=== PATIENT | female | born 1960 | race Caucasian/White ===

== ENCOUNTER → 2023-06-21 07:50 | Outpatient (REF) | payer BC, SELFPAY | LOC: WDC 07:50 | PROVIDERS: ATTENDING PHYSICIAN Nurse Practitioner Adult Health; FAMILY PHYSICIAN Nurse Practitioner Adult Health | DX: R92.2 Inconclusive mammogram (principal); Z80.3 Family history of malignant neoplasm of breast | CPT/HCPCS: 76641 ==

== ENCOUNTER → 2023-06-22 07:51 | Outpatient (REF) | payer BC, SELFPAY | LOC: RAD 07:51 | PROVIDERS: ATTENDING PHYSICIAN Internal Medicine Rheumatology; FAMILY PHYSICIAN Nurse Practitioner Adult Health | DX: M81.0 Age-related osteoporosis without current pathological fracture (principal) | CPT/HCPCS: 72072; 72110; 73523; 77080 ==

== ENCOUNTER → 2023-08-06 07:31 | Outpatient (REF) | payer BC, SELFPAY ==
[2023-08-06 08:27] LABS: % Basophils 1.2 % (0-2); % Eosinophils 4.4 % (0-6); % Immature Granulocytes 0.3 % (0-0.5); % Lymphocytes 22.5 % (20.5-51.1); % Monocytes 9.1 % (1.7-9.3); % Neutrophils 62.5 % (42.2-75.2); Absolute Eosinophils 0.2 10^3/uL (0-0.7); Absolute Lymphocytes 0.8 10^3/uL (1.2-3.4); Absolute Monocytes 0.3 10^3/uL (0.1-0.6); Absolute Neutrophils 2.1 10^3/uL (1.4-6.5); Hematocrit 40.3 % (37.0-47.0); Hemoglobin 13.2 g/dL (12.0-16.0); Mean Corp Hgb Conc. 32.8 g/dL (33.0-37.0); Mean Corpuscular Hgb 29.2 pg (27.0-31.0); Mean Corpuscular Volume 89.2 fL (81.0-99.0); Mean Platelet Volume 10.5 fL (7.4-10.4); Nucleated Red Blood Cells % 0 %; Platelet Count 201 10^3/uL (130-400); Red Blood Cell Count 4.52 10^6/uL (4.20-5.40); Red Cell Dist. Width 12.5 % (11.5-14.5); White Blood Cell Count 3.4 10^3/uL (4.8-10.8)
[2023-08-06 09:18] LABS: ALT (SGPT) 28 U/L (0-35); AST (SGOT) 32 U/L (14-36); Albumin 4.1 g/dl (3.5-5.0); Alkaline Phosphatase 52 U/L (38-126); Blood Urea Nitrogen 18 mg/dl (7-17); Calcium 9.2 mg/dl (8.4-10.2); Carbon Dioxide 27 mmol/L (22-30); Chloride 103 mmol/L (98-107); Glucose 91 mg/dl (70-99); HDL Cholesterol 84 mg/dl; LDL Cholesterol, Calculated 110 mg/dl; Potassium 4.5 mmol/L (3.5-5.1); Sodium 136 mmol/L (135-145); Total Bilirubin 0.5 mg/dl (0.2-1.3); Total Cholesterol 206 mg/dl (50-199); Total Protein 6.5 g/dl (6.3-8.2); Triglyceride 62 mg/dl (10-149); Very Low Density Lipoprotein 12 mg/dl (0-30); eGFR > 60.00
[2023-08-06 09:20] LABS: Vitamin D, 25-OH*** 45.2 ng/mL (30-80)
[2023-08-06 09:34] LABS: TSH Reflex To Free T4 1.23 uIU/ml (0.47-4.68)
[2023-08-06 13:02] LABS: Intact PTH 53.4 pg/ml (13.6-85.8)
== END ==
LOC: REG 07:31
PROVIDERS: ATTENDING PHYSICIAN Internal Medicine Rheumatology; FAMILY PHYSICIAN Nurse Practitioner Adult Health
DX: E55.9 Vitamin D deficiency, unspecified (principal); M81.0 Age-related osteoporosis without current pathological fracture; I10 Essential (primary) hypertension; Z00.00 Encounter for general adult medical examination without abnormal findings; Z79.899 Other long term (current) drug therapy; Z13.29 Encounter for screening for other suspected endocrine disorder
CPT/HCPCS: 36415; 80053; 80061; 82306; 82330; 83970; 84443; 85025

== ENCOUNTER → 2023-09-23 07:23 | Outpatient (REF) | payer BC, SELFPAY | LOC: RAD 07:23 | PROVIDERS: ATTENDING PHYSICIAN Nurse Practitioner Adult Health | DX: R10.10 Upper abdominal pain, unspecified (principal) | CPT/HCPCS: 76700 ==

== ENCOUNTER → 2023-10-06 12:26 | Outpatient (REF) | payer BC, SELFPAY | LOC: MRI 3T 12:26 | PROVIDERS: ATTENDING PHYSICIAN Orthopaedic Surgery; FAMILY PHYSICIAN Nurse Practitioner Adult Health | DX: M25.552 Pain in left hip (principal) | CPT/HCPCS: 73721 ==

== ENCOUNTER → 2023-11-30 07:29 | Outpatient (REF) | payer BC, SELFPAY | LOC: WDC 07:29 | PROVIDERS: ATTENDING PHYSICIAN Nurse Practitioner Adult Health; FAMILY PHYSICIAN Nurse Practitioner Adult Health | DX: Z12.31 Encounter for screening mammogram for malignant neoplasm of breast (principal) | CPT/HCPCS: 77063; 77067 ==

== ENCOUNTER 2023-12-30 05:44 | Day surgery (SDC) | payer BC, SELFPAY ==
[2023-12-07 13:34] VITALS: BMI 25.3
[2023-12-07 15:11] LABS: Hematocrit 37.6 % (37.0-47.0); Hemoglobin 12.8 g/dL (12.0-16.0); Mean Corpuscular Volume 85.1 fL (81.0-99.0); Mean Platelet Volume 10.5 fL (7.4-10.4); Platelet Count 243 10^3/uL (130-400); Red Blood Cell Count 4.42 10^6/uL (4.20-5.40); White Blood Cell Count 4.2 10^3/uL (4.8-10.8)
[2023-12-07 15:26] LABS: ALT (SGPT) 27 U/L (0-35); AST (SGOT) 32 U/L (14-36); Albumin 4.3 g/dl (3.5-5.0); Alkaline Phosphatase 69 U/L (38-126); Blood Urea Nitrogen 16 mg/dl (7-17); Calcium 8.9 mg/dl (8.4-10.2); Carbon Dioxide 24 mmol/L (22-30); Chloride 102 mmol/L (98-107); Estimated Creatinine Clearance 65 ml/min; Glucose 89 mg/dl (70-99); Potassium 4.5 mmol/L (3.5-5.1); Sodium 137 mmol/L (135-145); Total Bilirubin 0.3 mg/dl (0.2-1.3); Total Protein 6.7 g/dl (6.3-8.2); eGFR > 60.00
[2023-12-08 09:25] LABS: Glycohemoglobin (HgbA1c) 5.8 % (4.0-5.6)
[2023-12-24 14:47] VITALS: BMI 25.3
[2023-12-30] VITALS (18 sets, daily range): BP systolic 89–151; BP diastolic 42–87; PULSE 64; O2SAT 98
[2023-12-30] MEDS: TYLENOL 650 MG PO ×4 (08:15→23:22)
[2023-12-30] MEDS: CELEBREX 200 MG PO (08:16)
--- NOTE | 2023-12-30 10:08 | VNURNOTE ---
Chart reviewed. Per Ortho pre-op note, pt to start outpt PT Mon after surgery. Surgery is on 12/29, per OR list, pt to stay overnight (PSR).
Plan: outpt PT per Ortho plan
[2023-12-30] MEDS: ROXICODONE 5 MG PO ×2 (12:54→20:07)
[2023-12-30] MEDS: DILAUDID 0.25 MG IV ×2 (14:42→14:57)
--- NOTE | 2023-12-30 14:54 | W.PN.ORTHO ---
Today's Communication / Plan
-
D/c when clinically stable.
Assessment
.
Distal Motor Intact: Yes
Dressing:
Scant incisional bleeding.
Assessment:
L knee OA s/p L TKA w/ Dr Head 12/30/23
DVT prophylaxis - ASA, b/l venous foot pumps
HTN - + parameters - monitor BP
Heart murmur; echo 2020 w/o significant valvular disease
Tubular adenomatous polyp colon s/p excision
Diverticulosis
Cholelithiasis, asymptomatic
IBS
Multilevel DDD
Chronic wedge compression T9 fracture
Sciatica
Anxiety
Osteopenia
Chronic benign neutropenia
Insomnia
Prediabetes, A1c 5.8
Plan
.
Surgery / Date: L TKA w/ Dr Head 12/30/23
DVT Prophylaxis: Aspirin
Activity:
Out of bed.
PT/OT
Discharge Plan: Home w/ Outpatient PT
Subjective
.
.:
Patient resting comfortably in PACU.
Left knee pain minimal and currently well tolerated.
Denies any new significant complaints.
Vital Signs and Labs
.
Vital Signs and Labs:
Lab Results
12/07/23 13:27
12/07/23 13:27
Physical Exam
-
HEENT: No pallor, cyanosis, or jaundice. Throat clear.
NECK: Supple. No JVD.
RESPIRATORY: Lungs clear to auscultation.
CVS: S1, S2 normal. RRR.�+ Murmur.
ABDOMEN: Soft, non-tender. No distension.
EXTREMITIES: Strength equal, no calf pain with palpation/dorsiflexion. Calves soft.
OPERATIONS SYSTEMS SPECIALIST: AOx3. No focal deficits. director of managed services grossly intact
[2023-12-30] MEDS: NORMOSOL-R/PLASMALYTE-A 1000 IV (15:51)
[2023-12-30] MEDS: ROXICODONE 10 MG PO ×2 (15:51→23:26)
[2023-12-30] MEDS: TYLENOL PO (15:51)
--- NOTE | 2023-12-30 15:55 | PTCARENOTE ---
Patient received from PACU in bed; Left knee primaseal with small amount of drainage; Patient states pain is a five out of ten at this time; Patient denies N/V at this time; Call skinner within reach; Patient oriented to room and unit; Bed in lowest
position, wheels locked; Assessment ongoing
[2023-12-30] MEDS: ZOFRAN 4 MG IV ×2 (17:14→23:23)
[2023-12-30] MEDS: ASPIRIN 325 MG PO (17:15)
[2023-12-30] MEDS: DILAUDID 0.5 MG IV (17:16)
[2023-12-30] MEDS: ANCEF 5 IV (17:16)
[2023-12-30] MEDS: SENOKOT 17.2 MG PO (20:06)
[2023-12-30] MEDS: DECADRON 4 MG PO (20:06)
[2023-12-30] MEDS: COMPAZINE 5 MG PO (20:06)
[2023-12-30] MEDS: COLACE 100 MG PO (20:06)
[2023-12-30] MEDS: BACTROBAN 2% OINTMENT 1 APPLIC NASAL (20:46)
[2023-12-30] MEDS: ZYRTEC 10 MG PO (21:00)
[2023-12-30] MEDS: PEPCID 20 MG PO (21:00)
[2023-12-31] MEDS: ANCEF 5 IV (01:11)
[2023-12-31 03:09] VITALS: BP 119/62
[2023-12-31] MEDS: TYLENOL 650 MG PO ×3 (03:22→12:38)
[2023-12-31] MEDS: ROXICODONE 5 MG PO ×3 (03:26→12:38)
[2023-12-31 07:22] VITALS: BP 116/64
[2023-12-31] MEDS: BACTROBAN 2% OINTMENT 1 APPLIC NASAL (08:31)
[2023-12-31] MEDS: ASPIRIN 325 MG PO (08:31)
[2023-12-31] MEDS: DECADRON 4 MG PO (08:32)
[2023-12-31] MEDS: CELEBREX 200 MG PO (08:32)
[2023-12-31] MEDS: COLACE 100 MG PO (08:32)
[2023-12-31] MEDS: SENOKOT 17.2 MG PO (08:32)
--- NOTE | 2023-12-31 09:30 | W.PN.ORTHO ---
Today's Communication / Plan
-
Await PT and OT recs.
D/c later today if remaining clinically stable.
Assessment
.
Distal Motor Intact: Yes
Dressing:
Scant old incisional bleeding - unchanged since yesterday.
Assessment:
L knee OA s/p L TKA w/ Dr Head 12/30/23
DVT prophylaxis - ASA, b/l venous foot pumps
Post-op nausea - likely 2* IV Dilaudid for severe breakthrough pain - improved w/ anti-emetics prn
- Does have [facility] Solutionfran script for d/c
HTN - + parameters - BPs overall stable
Heart murmur; echo 2020 w/o significant valvular disease
Tubular adenomatous polyp colon s/p excision
Diverticulosis
Cholelithiasis, asymptomatic
IBS
Multilevel DDD
Chronic wedge compression T9 fracture
Sciatica
Anxiety
Osteopenia
Chronic benign neutropenia
Insomnia
Prediabetes, A1c 5.8
Plan
.
Surgery / Date: L TKA w/ Dr Head 12/30/23
DVT Prophylaxis: Aspirin
Activity:
Out of bed.
PT/OT
Discharge Plan: Home w/ Outpatient PT
Subjective
.
.:
Patient resting comfortably in her bed this AM.
L knee pain better tolerated in comparison to yesterday evening.
Nausea yesterday evening improved w/ anti-emetics prn.
Eager for potential d/c today.
Vital Signs and Labs
.
Vital Signs and Labs:
Lab Results
12/07/23 13:27
12/07/23 13:27
Temp Pulse Resp BP Pulse Ox
98.5 F 71 16 116/64 97
12/31/23 07:22 12/31/23 08:32 12/31/23 07:22 12/31/23 08:32 12/31/23 07:22
Non-invasive Hgb result: 11.2
Physical Exam
-
HEENT: No pallor, cyanosis, or jaundice. Throat clear.
NECK: Supple. No JVD.
RESPIRATORY: Lungs clear to auscultation.
CVS: S1, S2 normal. RRR.�+ Murmur.
ABDOMEN: Soft, non-tender. No distension.
EXTREMITIES: Expected post-surgical L knee edema. Strength equal, no calf pain with palpation/dorsiflexion. Calves soft.
CERTIFIED LOW VISION THERAPIST: AOx3. No focal deficits. plan consultant grossly intact
--- NOTE | 2023-12-31 09:45 | W.DS.TRANS ---
DC Summary - Documentation Liaison
-
Discharge Instructions:
Sleep Apnea Risk Low
Discharge Diagnosis/Procedures L knee OA s/p L TKA w/ Dr Head 12/30/23
Diet Regular
Activity As tolerated,With Walker
Driving Restrictions Not until seen by your Dr
Bathing Restrictions OK to Shower
Other Services PT
Wound Care Dressing to be removed 1 week post-surgery
Instructions:
Stand-Alone Forms: Total Hip/Knee Replacement D/C
Changes to Home Medications: Yes
Discharge Medications:
DC Medications w/original date entered in [facility]
lands Leg Cramps 2 cap PO HS 12/24/23
cetirizine 10 mg tablet (Zyrtec) 10 mg PO HS 12/24/23
denosumab 60 mg/mL subcutaneous syringe (Prolia) 60 mg SC [id number] 12/24/23
lorazepam 1 mg tablet 0.5 mg PO HS PRN sleep 12/24/23
acetaminophen 500 mg tablet (Tylenol Extra Strength) 1,000 mg (2 x 500 mg) PO Q6H #60 tabs 12/30/23
aspirin 325 mg tablet 325 mg PO DAILY #30 tabs 12/30/23
celecoxib 100 mg capsule (Celebrex) 100 mg PO BID #30 caps 12/30/23
dexamethasone 4 mg tablet 4 mg PO Q12H Anti-inflammatory #7 tabs 12/30/23
docusate sodium 100 mg capsule 100 mg PO BID #30 caps 12/30/23
losartan 50 mg tablet 50 mg PO DAILY #0 tabs 12/30/23
ondansetron HCl 4 mg tablet 4 mg PO Q6H PRN nausea and vomiting #30 tabs 12/30/23
oxycodone 5 mg tablet 5 - 10 mg (1 - 2 x 5 mg) PO Q6H PRN moderate-severe pain #30 tabs 12/30/23
sennosides 8.6 mg tablet (Senna Laxative) 17.2 mg (2 x 8.6 mg) PO BID #30 tabs 12/30/23
Home Medication Changes
acetaminophen 500 mg tablet (Tylenol Extra Strength) 1,000 mg (2 x 500 mg) PO Q6H #60 tabs 12/30/23
aspirin 325 mg tablet 325 mg PO DAILY #30 tabs 12/30/23
celecoxib 100 mg capsule (Celebrex) 100 mg PO BID #30 caps 12/30/23
dexamethasone 4 mg tablet 4 mg PO Q12H Anti-inflammatory #7 tabs 12/30/23
docusate sodium 100 mg capsule 100 mg PO BID #30 caps 12/30/23
ondansetron HCl 4 mg tablet 4 mg PO Q6H PRN nausea and vomiting #30 tabs 12/30/23
oxycodone 5 mg tablet 5 - 10 mg (1 - 2 x 5 mg) PO Q6H PRN moderate-severe pain #30 tabs 12/30/23
sennosides 8.6 mg tablet (Senna Laxative) 17.2 mg (2 x 8.6 mg) PO BID #30 tabs 12/30/23
Pending Results: No
[2023-12-31 10:17] VITALS: BP 143/62; BP_SYST 76; PULSE 75; O2SAT 97
[2023-12-31 10:34] VITALS: BP 143/62; PULSE 75; O2SAT 97
--- NOTE | 2023-12-31 11:01 | CM ---
Met with pt at bedside
Pt lives with her mother and sister in a 2 story home; 3 steps to enter, 12 steps to 2nd fl
Independent at baseline, works FT, drives
DME - rolling walker, single point cane, raised toilet seat, shower bar, shower chair
SNF/HH - no hx
Has ride home
PCP - James Jesus
Pharm - [facility]
Has outpatient PT scheduled for Wednesday at [facility]. Has Rx
Plan - home with Outpatient PT
[2023-12-31 11:16] VITALS: BP 135/74
== END 2023-12-31 14:02 | disposition home or self-care (01) ==
LOC: SDS 05:44
PROVIDERS: ATTENDING PHYSICIAN Orthopaedic Surgery; FAMILY PHYSICIAN Nurse Practitioner Adult Health
DX: M17.12 Unilateral primary osteoarthritis, left knee (principal); I10 Essential (primary) hypertension; R11.0 Nausea; T40.2X5A Adverse effect of other opioids, initial encounter
CPT/HCPCS: 27447; 36415; 73560; 80053; 83036; 85027; 87070; 93005; 97110; 97116; 97162; 97166; 97530; 97535; C1713; C1776

== ENCOUNTER 2024-01-05 06:27 | Outpatient (RCR) | payer BC, SELFPAY | END 2024-01-05 23:59 | disposition home or self-care (01) | LOC: RPT 06:27 | PROVIDERS: ATTENDING PHYSICIAN Orthopaedic Surgery; FAMILY PHYSICIAN Nurse Practitioner Adult Health | DX: Z47.1 Aftercare following joint replacement surgery (principal); Z73.6 Limitation of activities due to disability; M25.562 Pain in left knee; Z96.652 Presence of left artificial knee joint | CPT/HCPCS: 97010; 97110; 97161 ==

== ENCOUNTER 2024-02-04 07:50 | Outpatient (RCR) | payer BC, SELFPAY | END 2024-02-04 23:59 | disposition home or self-care (01) | LOC: RPT 07:50 | PROVIDERS: ATTENDING PHYSICIAN Orthopaedic Surgery; FAMILY PHYSICIAN Nurse Practitioner Adult Health | DX: Z47.1 Aftercare following joint replacement surgery (principal); Z96.652 Presence of left artificial knee joint; M25.562 Pain in left knee; M62.81 Muscle weakness (generalized); Z73.6 Limitation of activities due to disability | CPT/HCPCS: 97010; 97110; 97112; 97116; 97140; 97530 ==

== ENCOUNTER 2024-03-06 06:56 | Outpatient (RCR) | payer BC, SELFPAY | END 2024-03-06 23:59 | disposition home or self-care (01) | LOC: RPT 06:56 | PROVIDERS: ATTENDING PHYSICIAN Orthopaedic Surgery; FAMILY PHYSICIAN Nurse Practitioner Adult Health | DX: Z47.1 Aftercare following joint replacement surgery (principal); M25.562 Pain in left knee; Z96.652 Presence of left artificial knee joint; M62.81 Muscle weakness (generalized); Z73.6 Limitation of activities due to disability | CPT/HCPCS: 97010; 97110; 97112; 97140; 97530 ==

== ENCOUNTER 2024-04-05 16:56 | Outpatient (RCR) | payer BC, SELFPAY | END 2024-04-06 07:36 | disposition home or self-care (01) | LOC: RPT 16:56 | PROVIDERS: ATTENDING PHYSICIAN Orthopaedic Surgery; FAMILY PHYSICIAN Nurse Practitioner Adult Health | DX: Z47.1 Aftercare following joint replacement surgery (principal); M25.562 Pain in left knee; M62.81 Muscle weakness (generalized); Z73.6 Limitation of activities due to disability; Z96.652 Presence of left artificial knee joint | CPT/HCPCS: 97110; 97112; 97530 ==

== ENCOUNTER → 2024-04-21 07:34 | Outpatient (REF) | payer BC, SELFPAY ==
[2024-04-21 08:03] LABS: Ionized Calcium 1.15 mMOL/L (1.15-1.33)
[2024-04-21 09:08] LABS: ALT (SGPT) 21 U/L (0-35); AST (SGOT) 28 U/L (14-36); Albumin 4.1 g/dl (3.5-5.0); Alkaline Phosphatase 60 U/L (38-126); Blood Urea Nitrogen 17 mg/dl (7-17); Calcium 8.9 mg/dl (8.4-10.2); Carbon Dioxide 26 mmol/L (22-30); Chloride 103 mmol/L (98-107); Glucose 98 mg/dl (70-99); Potassium 4.5 mmol/L (3.5-5.1); Sodium 137 mmol/L (135-145); Total Bilirubin 0.5 mg/dl (0.2-1.3); Total Protein 6.3 g/dl (6.3-8.2); eGFR > 60.00
[2024-04-21 09:17] LABS: Vitamin D, 25-OH*** 51.9 ng/mL (30-80)
[2024-04-22 09:43] LABS: Intact PTH 40.8 pg/ml (13.6-85.8)
== END ==
LOC: REG 07:34
PROVIDERS: ATTENDING PHYSICIAN Internal Medicine Rheumatology; FAMILY PHYSICIAN Nurse Practitioner Adult Health
DX: E07.9 Disorder of thyroid, unspecified (principal); E55.9 Vitamin D deficiency, unspecified; M25.551 Pain in right hip; M25.552 Pain in left hip; M54.50 Low back pain, unspecified; M54.6 Pain in thoracic spine; M81.0 Age-related osteoporosis without current pathological fracture
CPT/HCPCS: 36415; 80053; 82306; 82330; 83970

== ENCOUNTER 2024-06-04 14:40 | Emergency (ER) | payer BC, SELFPAY ==
[2024-06-04 14:44] VITALS: BP 152/85
[2024-06-04 16:27] VITALS: BMI 27.6
--- NOTE | 2024-06-04 16:33 | ED.MUSCINJ ---
HPI-Injury
General
Chief Complaint: Musculo-Skeletal Complaint
Source: patient
Time Seen by Provider: 06/04/24 16:26
History of Present Illness-Injury
Is this injury a work related problem?: No
Is pt an associate of [facility]?: No
Initial Injury comments:
64-year-old female not diabetic, previously saw Dr. Karl Head for knee replacement presents with a few days of left wrist pain, works in [employer] does do a lot of heavy lifting was also gardening recently no known foreign bodies, no fevers
no history of gout
Past History
Past History
ED Past Medical History: HTN, Valvular disease (murmer) and Other (gallstones)
ED Past Surgical History: Orthopedic and Other (septoplasty, EGD/Colonoscopy)
Social History
Tobacco: Non-smoker
Alcohol: Occasional
Drug: None
Personal:
Living: with family
Employment: Employed
Review of Systems
Review of Systems
All Other Systems: Not applicable
Constitutional: Denies fever or fatigue
Musculoskeletal: Reports joint pain
Phy Exam
Physical Exam
Physical Exam:
Physical Exam
General: no apparent distress, not acutely ill
Neck: No jaundice
Heart: s1/s2 regular rate and rhythm, no murmur. equal radial pulses.
Lungs: no acute respiratory distress. clear bilaterally
Neuro: alert and oriented. no focal neurological deficits
Skin: no rash
Psychiatric: well kept. interactive and cooperative
Extremities: Swelling ulnar surface left wrist overlying the carpal bones minimal warmth no crepitance full range of motion
Injury Course
Orders/Labs/Results
Orders:
Orders
06/04/24 14:47
CR Wrist - Left Min 3 Views Urgent
Comment:
Reason For Exam: Swollen, tender
03/30/25 16:32
Splints/Slings/Crut- Treatment ONCE
Cephalexin Monohydrate [Keflex] 500 mg PO NOW STA
Ibuprofen [Motrin] 600 mg PO NOW STA
MDM/Problems Addressed
Differential Diagnosis Includes:
Overuse cellulitis tendinitis perhaps foreign body
MDM/Problems Addressed:
Wrist pain
*Critical Care Note
Total Time (30-74mins, 75-104mins- exclusive of procedures): Not Applicable
Update Note
Update Note:
Clinically suspect overuse x-ray noted report noted will start on antibiotics NSAID splint follow-up orthopedic hand
ED Attending Note
-
Portions of this chart may have been created with voice recognition software.� Occasional wrong word or��sound alike� substitutions may have occurred due to the inherent limitations of voice recognition software.
Discharge Plan
Departure
Date of Disposition: 06/04/24
Time of Disposition: 16:36
Patient with high blood pressure during this ER visit?: No
Condition: Good
Prescriptions:
New
cephalexin 500 mg capsule
500 mg PO Q8H 7 Days Qty: 21 0RF
ibuprofen 400 mg tablet
400 mg PO Q8H PRN (Reason: Pain) Qty: 20 0RF
No Action
cetirizine [Zyrtec] 10 mg Tablet
10 mg PO HS
lorazepam 1 mg Tablet
0.5 mg PO HS PRN (Reason: sleep)
Prolia 60 mg/mL Syringe
60 mg SC [id number]
Patient Comments:
last shot October
[place] Leg Cramps
2 cap PO HS
aspirin 325 mg Tablet
325 mg PO DAILY Qty: 30 0RF
Rx Instructions:
Take daily x4 weeks for blood clot prevention.
dexamethasone 4 mg Tablet
4 mg PO Q12H Qty: 7 0RF
Rx Instructions:
Restart night of discharge and continue twice a day until finished.
Take with food.
docusate sodium 100 mg Capsule
100 mg PO BID Qty: 30 0RF
oxycodone 5 mg Tablet
5 - 10 mg PO Q6H PRN (Reason: moderate-severe pain) Qty: 30 0RF
Rx Instructions:
1 tab for moderate pain, 2 if severe.
Dx total joint
sennosides [Senna Laxative] 8.6 mg Tablet
17.2 mg PO BID Qty: 30 0RF
acetaminophen [Tylenol Extra Strength] 500 mg tablet
1,000 mg PO Q6H Qty: 60 0RF
Rx Instructions:
DO NOT exceed >4000 mg daily.
ondansetron HCl 4 mg tablet
4 mg PO Q6H PRN (Reason: nausea and vomiting) Qty: 30 0RF
Rx Instructions:
Prescribed pre-op by surgeon's office.
celecoxib [Celebrex] 100 mg capsule
100 mg PO BID Qty: 30 0RF
Rx Instructions:
Restart night of discharge. Take with food.
DO NOT take within 2 hours of Aspirin.
losartan 50 mg Tablet
50 mg PO DAILY Qty: 0 0RF
Rx Instructions:
HOLD if systolic blood pressure <130 while on Oxycodone
Referrals:
Colten Reeves MD [Active] - Next open appointment
Activity Restrictions/Additional Instructions:
Rest, use splint, take antibiotics and ibuprofen as prescribed
Call [facility] orthopedics, to arrange follow-up with one of their hand doctors
Return to the ER for worsening symptoms
Interventions
Interventions:
*Risk Screen - Suicide Last Done: 06/04/24 16:27
*General Assessment Last Done: 06/04/24 16:27
*Neglect/Abuse Screening Last Done: 06/04/24 16:27
*ED- Fall Risk Assessment Last Done: 06/04/24 16:27
*ED COVID-19 Vaccine History Last Done: 06/04/24 16:27
ED-Musculoskeletal Assessment Last Done: 06/04/24 16:27
Discharge Date and Time
Print Language: MAURITIAN
[2024-06-04] MEDS: MOTRIN 600 MG PO (16:40)
[2024-06-04] MEDS: KEFLEX 500 MG PO (16:40)
== END 2024-06-04 16:52 | disposition home or self-care (01) ==
LOC: EMR 14:40
PROVIDERS: EMERGENCY PHYSICIAN Emergency Medicine; FAMILY PHYSICIAN Nurse Practitioner Adult Health
DX: M25.532 Pain in left wrist (principal); I10 Essential (primary) hypertension
CPT/HCPCS: 99283; 73110

== ENCOUNTER → 2024-06-21 07:55 | Outpatient (REF) | payer BC, SELFPAY | LOC: WDC 07:55 | PROVIDERS: ATTENDING PHYSICIAN Nurse Practitioner Adult Health; FAMILY PHYSICIAN Nurse Practitioner Adult Health | DX: R92.2 Inconclusive mammogram (principal) | CPT/HCPCS: 76641 ==

== ENCOUNTER → 2024-08-25 07:19 | Outpatient (REF) | payer BC, SELFPAY ==
[2024-08-25 08:01] LABS: Ionized Calcium 1.12 mMOL/L (1.15-1.33)
[2024-08-25 08:03] LABS: % Eosinophils 3.1 % (0-6); % Lymphocytes 16.3 % (20.5-51.1); % Monocytes 11.1 % (1.7-9.3); % Neutrophils 68.5 % (42.2-75.2); Absolute Eosinophils 0.1 10^3/uL (0-0.7); Absolute Lymphocytes 0.5 10^3/uL (1.2-3.4); Absolute Monocytes 0.3 10^3/uL (0.1-0.6); Hematocrit 39.6 % (37.0-47.0); Hemoglobin 13.2 g/dL (12.0-16.0); Mean Corp Hgb Conc. 33.3 g/dL (33.0-37.0); Mean Corpuscular Hgb 28.6 pg (27.0-31.0); Mean Corpuscular Volume 85.7 fL (81.0-99.0); Mean Platelet Volume 10.7 fL (7.4-10.4); Nucleated Red Blood Cells % 0 %; Platelet Count 186 10^3/uL (130-400); Red Blood Cell Count 4.62 10^6/uL (4.20-5.40); Red Cell Dist. Width 11.9 % (11.5-14.5); White Blood Cell Count 2.9 10^3/uL (4.8-10.8)
[2024-08-25 08:35] LABS: ALT (SGPT) 20 U/L (0-35); AST (SGOT) 27 U/L (14-36); Albumin 4.2 g/dl (3.5-5.0); Alkaline Phosphatase 49 U/L (38-126); Blood Urea Nitrogen 21 mg/dl (7-17); Calcium 9.1 mg/dl (8.4-10.2); Carbon Dioxide 25 mmol/L (22-30); Chloride 107 mmol/L (98-107); Glucose 96 mg/dl (70-99); HDL Cholesterol 58 mg/dl; LDL Cholesterol, Calculated 103 mg/dl; Potassium 4.4 mmol/L (3.5-5.1); Sodium 140 mmol/L (135-145); Total Bilirubin 0.5 mg/dl (0.2-1.3); Total Cholesterol 176 mg/dl (50-199); Total Protein 6.5 g/dl (6.3-8.2); Triglyceride 78 mg/dl (10-149); Very Low Density Lipoprotein 15 mg/dl (0-30); eGFR > 60.00
[2024-08-25 09:04] LABS: TSH Reflex To Free T4 1.27 uIU/ml (0.47-4.68)
[2024-08-25 09:05] LABS: Glycohemoglobin (HgbA1c) 5.9 % (4.0-5.6)
[2024-08-27 21:31] LABS: Endomysial IgA Antibody Titer <1:10 (<1:10)
[2024-08-28 01:23] LABS: IgA 145 mg/dl (70-400)
== END ==
LOC: REG 07:19
PROVIDERS: ATTENDING PHYSICIAN Internal Medicine Cardiovascular Disease; FAMILY PHYSICIAN Nurse Practitioner Adult Health; OTHER PHYSICIAN Student in an Organized Health Care Education/Training Program
DX: R73.01 Impaired fasting glucose (principal); Z79.899 Other long term (current) drug therapy; Z13.29 Encounter for screening for other suspected endocrine disorder; E78.00 Pure hypercholesterolemia, unspecified; Z84.89 Family history of other specified conditions; D72.819 Decreased white blood cell count, unspecified; E07.9 Disorder of thyroid, unspecified; E21.5 Disorder of parathyroid gland, unspecified; E27.9 Disorder of adrenal gland, unspecified; E55.9 Vitamin D deficiency, unspecified; E61.2 Magnesium deficiency; G89.29 Other chronic pain; K90.0 Celiac disease; M79.10 Myalgia, unspecified site; M70.51 Other bursitis of knee, right knee; M54.6 Pain in thoracic spine; M54.50 Low back pain, unspecified; M54.42 Lumbago with sciatica, left side; M25.551 Pain in right hip; M17.12 Unilateral primary osteoarthritis, left knee
CPT/HCPCS: 36415; 80053; 80061; 82330; 82784; 83036; 83516; 84443; 85025; 86231

== ENCOUNTER → 2024-12-01 07:32 | Outpatient (REF) | payer BC, SELFPAY | LOC: WDC 07:32 | PROVIDERS: ATTENDING PHYSICIAN Nurse Practitioner Adult Health | DX: Z12.31 Encounter for screening mammogram for malignant neoplasm of breast (principal) | CPT/HCPCS: 77063; 77067 ==

== ENCOUNTER → 2024-12-15 07:08 | Outpatient (REF) | payer BC, SELFPAY ==
[2024-12-15 08:12] LABS: Hematocrit 38.3 % (37.0-47.0); Hemoglobin 12.8 g/dL (12.0-16.0); Mean Corp Hgb Conc. 33.4 g/dL (33.0-37.0); Mean Corpuscular Volume 86.8 fL (81.0-99.0); Nucleated Red Blood Cells % 0 %; Platelet Count 210 10^3/uL (130-400); Red Cell Dist. Width 12.0 % (11.5-14.5)
[2024-12-15 08:37] LABS: ALT (SGPT) 18 U/L (0-35); AST (SGOT) 23 U/L (14-36); Albumin 4.2 g/dl (3.5-5.0); Alkaline Phosphatase 59 U/L (38-126); Blood Urea Nitrogen 15 mg/dl (7-17); Calcium 9.1 mg/dl (8.4-10.2); Carbon Dioxide 26 mmol/L (22-30); Chloride 104 mmol/L (98-107); Glucose 95 mg/dl (70-99); Iron 95 ug/dl (37-170); Potassium 4.3 mmol/L (3.5-5.1); Sodium 137 mmol/L (135-145); Total Protein 6.7 g/dl (6.3-8.2); eGFR > 60.00
[2024-12-15 08:46] LABS: Total Iron Binding Capacity 331 ug/dl (265-497)
[2024-12-15 09:14] LABS: Ferritin 27.3 ng/ml (11.1-264.0)
[2024-12-15 09:46] LABS: Folate 15.1 ng/ml (2.76-20); Vitamin B12 506 pg/ml (239-931)
[2024-12-17 01:13] LABS: ANA, IgG Reflex to HEp-2 None Detected (None Detected)
[2024-12-17 13:50] LABS: Source Blood
== END ==
LOC: REG 07:08
PROVIDERS: Internal Medicine Hematology & Oncology; ATTENDING PHYSICIAN Student in an Organized Health Care Education/Training Program; FAMILY PHYSICIAN Nurse Practitioner Adult Health
DX: D72.819 Decreased white blood cell count, unspecified (principal); E07.9 Disorder of thyroid, unspecified; E21.5 Disorder of parathyroid gland, unspecified; E27.9 Disorder of adrenal gland, unspecified; E55.9 Vitamin D deficiency, unspecified; E61.2 Magnesium deficiency; G89.29 Other chronic pain; K90.0 Celiac disease; M17.0 Bilateral primary osteoarthritis of knee; M17.12 Unilateral primary osteoarthritis, left knee; M25.551 Pain in right hip; M25.552 Pain in left hip; M54.42 Lumbago with sciatica, left side; M54.50 Low back pain, unspecified; M54.6 Pain in thoracic spine; M70.51 Other bursitis of knee, right knee; M79.10 Myalgia, unspecified site; M81.0 Age-related osteoporosis without current pathological fracture; Z51.81 Encounter for therapeutic drug level monitoring; Z68.28 Body mass index [BMI] 28.0-28.9, adult
CPT/HCPCS: 36415; 80053; 82330; 82550; 82565; 82607; 82728; 82746; 83540; 83550; 85025; 86038; 87389

== ENCOUNTER → 2025-01-08 07:29 | Outpatient (REF) | payer BC, SELFPAY ==
[2025-01-08 08:05] LABS: Hematocrit 38.7 % (37.0-47.0); Hemoglobin 12.8 g/dL (12.0-16.0); Mean Corp Hgb Conc. 33.1 g/dL (33.0-37.0); Mean Corpuscular Volume 87.2 fL (81.0-99.0); Nucleated Red Blood Cells % 0 %; Platelet Count 192 10^3/uL (130-400); Red Cell Dist. Width 11.9 % (11.5-14.5)
[2025-01-08 08:33] LABS: ALT (SGPT) 23 U/L (0-35); AST (SGOT) 27 U/L (14-36); Albumin 4.2 g/dl (3.5-5.0); Alkaline Phosphatase 58 U/L (38-126); Blood Urea Nitrogen 12 mg/dl (7-17); Calcium 9.0 mg/dl (8.4-10.2); Carbon Dioxide 29 mmol/L (22-30); Chloride 101 mmol/L (98-107); Glucose 98 mg/dl (70-99); Potassium 4.3 mmol/L (3.5-5.1); Sodium 134 mmol/L (135-145); Total Protein 6.7 g/dl (6.3-8.2); eGFR > 60.00
== END ==
LOC: REG 07:29
PROVIDERS: ATTENDING PHYSICIAN Student in an Organized Health Care Education/Training Program
DX: D72.819 Decreased white blood cell count, unspecified (principal); E83.51 Hypocalcemia; M79.10 Myalgia, unspecified site; M81.0 Age-related osteoporosis without current pathological fracture; Z51.81 Encounter for therapeutic drug level monitoring
CPT/HCPCS: 36415; 80053; 82330; 82550; 85025